=== PATIENT | female | born 1985 | race Two or more races ===

== ENCOUNTER → 2021-02-04 09:16 | Outpatient (CLI) | payer OTHER | END | disposition home or self-care (01) | LOC: LAB 09:16 | DX: U07.1 COVID-19 (principal) ==

== ENCOUNTER → 2021-03-30 07:00 | Outpatient (CLI) | payer OTHER | END | disposition home or self-care (01) | LOC: LAB 02-09 14:06 | PROVIDERS: ATTEND Emergency Medicine Pediatric Emergency Medicine | DX: Z03.818 Encounter for observation for suspected exposure to other biological agents ruled out (principal) ==

== ENCOUNTER → 2021-04-13 08:34 | Outpatient (CLI) | payer OTHER | END | disposition home or self-care (01) | LOC: LAB 07:24 | PROVIDERS: ATTEND Emergency Medicine Pediatric Emergency Medicine | DX: Z03.818 Encounter for observation for suspected exposure to other biological agents ruled out (principal) ==

== ENCOUNTER 2021-04-27 08:49 | Outpatient (CLI) | payer OTHER | END 2021-04-27 08:50 | disposition home or self-care (01) | LOC: LAB 08:49 | PROVIDERS: ATTEND Emergency Medicine Pediatric Emergency Medicine | DX: Z03.818 Encounter for observation for suspected exposure to other biological agents ruled out (principal) ==

== ENCOUNTER → 2021-05-05 | Outpatient (CLI) | payer OTHER | END | disposition home or self-care (01) | LOC: RAD 12:24 | DX: S69.81XA Other specified injuries of right wrist, hand and finger(s), initial encounter (principal) ==

== ENCOUNTER 2021-05-16 10:28 | Outpatient (CLI) | payer OTHER | END 2021-05-16 10:34 | disposition home or self-care (01) | LOC: MRI 10:28 | DX: S69.91XA Unspecified injury of right wrist, hand and finger(s), initial encounter (principal) | CPT/HCPCS: 73221 ==